=== PATIENT | male | born 1965 | race Caucasian/White ===

== ENCOUNTER → 2022-07-30 | Outpatient (CLI) | payer MEDICARE, OTHER ==
[~2022-07-30] MED LIST: ACETAMINOPHEN-1 EAC1 PO; ANTIVERT 25MG T25 MG PO; CLONIDINE HCL0.1 MG PO; COLACE 100MG C100 MG PO; DEPO-TESTO100 MG/1 M IM; DEPO-TESTO200 MG/1 M IM; IBUPROFEN800 MG PO; LISINOPRIL20 MG PO; LOVASTATIN20 MG PO; MELOXICAM7.5 MG PO; METHOCARBAMOL750 MG PO; NEURONTIN 400400 MG PO; NORTRIPTYLINE H25 MG PO; PERCOCET 10-321 EACH PO; ROXICODONE15 MG PO; SEROQUEL XR400 MG PO
== END ==
LOC: EMI 13:00
DX: M48.08 Spinal stenosis, sacral and sacrococcygeal region (principal); M51.36 Other intervertebral disc degeneration, lumbar region
CPT/HCPCS: 72148